=== PATIENT | female | born 1955 | race Caucasian/White ===

== ENCOUNTER 2018-10-22 11:12 | Emergency (ER) | payer OTHER ==
[2018-10-22 11:38] VITALS: BMI 24.1
[2018-10-22 12:06] LABS: BASO % 0.5 % (0-2.0); EOS % 2.5 % (0-4.5); HEMATOCRIT 42.9 % (32.4-45.2); HEMOGLOBIN 13.6 GM/dL (10.7-15.3); LYMPH % 21.8 % (8-40); MCH 25.9 pg (25.7-33.7); MCHC 31.8 g/dl (32.0-36.0); MEAN CELL VOLUME 81.5 fl (80-96); MEAN PLT VOLUME 8.5 fl (7.5-11.1); MONO % 5.5 % (3.8-10.2); NEUT % 69.7 % (42.8-82.8); PLATELET COUNT 251 K/MM3 (134-434); RBC 5.26 M/mm3 (3.60-5.2); RDW 14.3 % (11.6-15.6); WHITE BLOOD COUNT 11.7 K/mm3 (4.0-10.0)
[2018-10-22 12:12] VITALS: TEMP 98
[2018-10-22] MEDS ORDERED: TICAGRELOR 90 MG TABLET PO ONE ×2 (12:20→12:21)
--- NOTE | 2018-10-22 12:26 | PDOC ---
History of Present Illness - General Chief Complaint: Syncope/Near Syncope Stated Complaint: DIZZY / VOMITING / HEADACHE Time Seen by Provider: 10/22/18 11:42 History Source: Patient, Spouse Exam Limitations: No Limitations - History of Present Illness Initial Comments: 10/22/18 12:24 63F with a PMH of HTN and HLD presents with CP. The patient states that she's had 2 episodes of CP, one of which she is currently experiencing. The patient states that she had 2 hours of chest pain yesterday which was retrosternal and radiates to her neck. This morning, she developed the same chest pressure with radiation to her back, nausea, one bout of NBNB vomiting, and SOB. SHe also admits to a headache but denies fever, chills, numbness, tingling, or weakness. She denies ever having pain like this before. Past History - Past Medical History Allergies/Adverse Reactions: Allergies Allergy/AdvReac Type Severity Reaction Status Date / Time Penicillins Allergy Intermediate Rash Verified 10/22/18 11:20 aspirin Allergy Mild Rash Verified 10/22/18 11:20 COPD: No HTN: Yes - Suicide/Smoking/Psychosocial Hx Smoking History: Never smoked Hx Alcohol Use: No Drug/Substance Use Hx: No Review of Systems - Review of Systems Able to Perform ROS?: Yes Comments:: 10/22/18 12:27 GENERAL/CONSTITUTIONAL: No fever or chills. No weakness. HEAD, EYES, EARS, NOSE AND THROAT: No change in vision. No ear pain or discharge. No sore throat. CARDIOVASCULAR: + for chest pain. No palpitations, or lightheadedness. RESPIRATORY: + for SOB. No cough, wheezing, or hemoptysis. GASTROINTESTINAL: + for nausea and vomiting. No diarrhea, constipation, or abdominal pain. GENITOURINARY: No dysuria, frequency, hematuria, or change in urination. MUSCULOSKELETAL: No joint or muscle swelling or pain. No neck or back pain. SKIN: No rash or lesions. NEUROLOGIC: No headache, numbness, tingling, focal weakness, loss of consciousness, or change in strength/sensation. Is the patient limited Polish proficient: No *Physical Exam - Vital Signs Last Vital Signs Temp Pulse Resp BP Pulse Ox 98.0 F 72 25 H 134/101 H 100 10/22/18 11:44 10/22/18 11:44 10/22/18 11:44 10/22/18 11:44 10/22/18 12:13 - Physical Exam Comments: 10/22/18 12:28 GENERAL: Well developed, well nourished. Awake and alert. In moderate distress w / generalized tremors. HEENT: Normocephalic, atraumatic. Hearing grossly normal. Moist mucous membranes. PERRLA, EOMI. No conjunctival pallor. Sclera are non-icteric. NECK: Supple. Full ROM. No JVD. CARDIOVASCULAR: Regular rate and rhythm. No murmurs, rubs, or gallops. PULMONARY: No evidence of respiratory distress. Lungs clear to auscultation bilaterally. No wheezing, rales or rhonchi. ABDOMINAL: Soft. Non-tender. Non-distended. No rebound or guarding. MUSCULOSKELETAL: Normal range of motion at all joints. No bony deformities or tenderness. EXTREMITIES: No cyanosis. No clubbing. No edema. No calf tenderness or swelling. SKIN: Warm and dry. Normal capillary refill. No rashes. No jaundice. NEUROLOGICAL: Alert, awake, appropriate. Cranial nerves 2-12 grossly intact. Normal speech. PSYCHIATRIC: Cooperative. Good eye contact. Appropriate mood and affect. ED Treatment Course - LABORATORY CBC & Chemistry Diagram: 10/22/18 11:44 10/22/18 11:44 - ADDITIONAL ORDERS Additional order review: 10/22/18 11:44 RBC 5.26 H MCV 81.5 MCHC 31.8 L RDW 14.3 MPV 8.5 Neutrophils % 69.7 Lymphocytes % 21.8 Monocytes % 5.5 Eosinophils % 2.5 Basophils % 0.5 - RADIOLOGY Radiology Studies Ordered: Category Date Time Status CHEST X-RAY PORTABLE* [RAD] Stat Radiology 10/22/18 11:44 Completed Medical Decision Making - Medical Decision Making 10/22/18 12:29 63F with PMH of HTN and HLD who presents to the ER with complaints of CP radiating to her back, h/a, and unsteady gait. EKG showing dynamic changes. 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 Consent signed for transfer. Ticagrelor given. CXR pending. Troponin pending. Will obtain CTH as patient admitted to a fall earlier and being unsteady. 10/22/18 12:57 CTH shows ICH. Cardio fellow informed, STEMI cancelled. EKG changes likely 2/2 ICH. Pending troponin. Giving morphine and zofran for pt comfort. 10/22/18 13:[address] Arora at [facility] who accepts patient on behalf of Dr. Harper. Dr. Stone, ED attending, also accepts patient. Pt informed. Giving reglan as well for nausea as pt is vomiting. Last BP is 160/90. Troponin pending. *DC/Admit/Observation/Transfer Diagnosis at time of Disposition: Intracranial hemorrhage - Discharge Dispostion Disposition: TRANSFER ACUTE CARE/OTHER HOSP Condition at time of disposition: Critical Decision to Admit order: No - Referrals Referrals: Thu Callahan MD [Primary Care Provider] - - Patient Instructions - Post Discharge Activity - Transfer to Acute Care Facility Receiving Facility: [facility] Accepting Physician:: Dr. Stone
--- NOTE | 2018-10-22 12:31 | PDOC ---
Documentation entered by Natalia Livingston SCRIBE, acting as scribe for Jessy Hernandez MD. Jessy Hernandez MD: This documentation has been prepared by the Yara ferreira Nirvannie, SCRIBE, under my direction and personally reviewed by me in its entirety. I confirm that the documentation accurately reflects all work, treatment, procedures, and medical decision making performed by me. Attending Attestation - Resident Resident Name: AyeDemond - ED Attending Attestation I have performed the following: I have examined & evaluated the patient, The case was reviewed & discussed with the resident, I agree w/resident's findings & plan - HPI HPI: 10/22/18 12:32 Patient has previously visited [facility] under J: [id number]. 63YOF, with significant past medical history of HTN, HLD, asthma, and gastritis , who presents to the emergency department with, 2 episodes of pressure-like chest pain. Yesterday she notes it was retrosternal with radiation to the back/ neck lasting 2 hours. Today she notes her chest pain to worsen with associated nausea, vomiting, back pain, headache, dizziness, and shortness of breath, prompting her arrival to the ED. While in the ED, patient notes feeling unsteady on her legs this morning thus, falling, unknown if she hit her head. + lateral and posterior neck pain, since her fall this morning. Denies LOC. No AMS/seizure. Denies fever, chills, palpitation, weakness, D, abdominal pain, bladder and bowel problems, leg swelling, No sick contacts or travel. No new changes in medications. No suspicious food intake Allergies: Penicillins, Aspirin Past Medical History: HTN, HLD, asthma, and gastritis Social history: Lives with family. No tobacco, ETOH or drug use. Surgical history: None reported. Meds: as documented in EMR PMD: Dr. Callahan 10/22/18 12:34 10/22/18 12:46 - Physicial Exam PE: 10/22/18 12:30 Agree with the resident's HPI and PE as documented in the electronic medical record. in mild distress, very anxious and tremulous. PERRL, EOMI, nl conjunctiva, anicteric; neck supple. no respiratory distress. lungs clear, RRR, no murmur, abdomen soft nontender. BUSTAMANTE x4, no focal neuro deficits. No peripheral edema. normal color for ethnicity, WWP. 5/5 prox and distal strength. SILT in all extrem. - Critical Care Time Total Critical Care Time: 45 (RN IMMUNOLOGY bleed) Critical Care Statement: The care of this patient involved high complexity decision making to prevent further life threatening deterioration of the patient 's condition and/or to evaluate & treat vital organ system(s) failure or risk of failure. - Medical Decision Making 10/22/18 12:21 I, Jessy Hernandez MD, attest that this document has been prepared under my direction and personally reviewed by me in its entirety. I further attest, that it accurately reflects all work, treatment, procedures and medical decision -making performed by me. See HPI for details Vital signs reviewed, +hypertensive. bilateral pressures elevated, likely from pain. DDx chest pain: ACS, coronary vasospasm, NSTEMI, arrhythmia, unstable angina, PE , dissection, PUD, esophageal spasm, GERD, gastritis, costochondritis, pneumonia , pleurisy, pericarditis/myocarditis. dehydration, electrolyte/metabolic derangements. SAH/head bleed. Prior notes reviewed, including admissions, discharges and consultations. laboratory results and imaging reviewed, basic labs and lytes wnl CXR_no acute chest pathology Cardiac panel_pending. EKG normal sinus rhythm at 72 bpm, no interval abnormalities, narrow QRS, no ST elevations, but TWI in lateral leads I, AVL, II, V4-6; no ST depressions. repeat EKG 15 minutes later; EKG normal sinus rhythm at 68 bpm, no interval abnormalities, narrow QRS, Biphasic TWI in V2-V3 with Wellens appearance, Persistent TWI in lateral leads I , AVL, II, V4-6, acute changes compared to prior. ED course - asa allergy, did not give. Brilinta x1. - CT head to eval for SAH/head bleed as etiology for TWI/cerebral T waves - Code Red alert, to [facility] - subsequently cancelled due to alternative etiology. - analgesia with morphine. antiemetics for n/v. - with CT head findings of left sided parietal intraparenchymal bleed, likely etiology for cardiac ischemia/cerebral T waves on EKG, and +trop, now needs NSG emergently. likely from ruptured aneurysm, needs CTA out transferring facility - no heparin as +RN IMMUNOLOGY bleed. - called to NSG at [facility]. will transfer for neurosurg/cards eval simulataneously transfer to [facility] ED, for NSG eval of ICH/ dynamic EKG changes, +trop and concerning clinical history. +cerebral T waves and ischemia. repeat VS with BP 160/90. ok for BP management with SBP maintained <160 in setting of RN IMMUNOLOGY bleed. 10/22/18 16:02 10/22/18 16:03 Heart Score/ECG Review #1 ECG reviewed & interpreted by me at: 11:30 General ECG Interpretation: Sinus Rhythm, Normal Rate, Normal Intervals Compared to previous ECG there are: Changes noted 10/22/18 12:24 EKG normal sinus rhythm at 72 bpm, no interval abnormalities, narrow QRS, no ST elevations, but TWI in lateral leads I, AVL, II, V4-6; no ST depressions. #2 ECG reviewed & interpreted by me at: 11:45 General ECG Interpretation: Sinus Rhythm, Normal Rate, Normal Intervals Compared to previous ECG there are: Changes noted 10/22/18 12:25 EKG normal sinus rhythm at 68 bpm, no interval abnormalities, narrow QRS, Biphasic TWI in V2-V3 with Wellens appearance, Persistent TWI in lateral leads I , AVL, II, V4-6, acute changes compared to prior. Procedures - Bedside Ultrasound Bedside Ultrasound: Cardiac Remarks: 10/22/18 12:37 POCUS echo and thoracic exam performed and documented/saved, indication includes chest pain/dyspnea. views obtained (PSLA, PSS, A4, SX, bilateral lung deutsch). Findings include normal EF on visual estimation, no pericardial or pleural effusion, primarily A lines, no FWMA, Normal aortic root <4cm. RV<LV. Impression: no acute findings
[2018-10-22] MEDS ORDERED: morphine CARPU-JECT 4 MG/1 ML DISP.SYRIN IVPUSH ONE (12:34)
[2018-10-22 12:37] LABS: INR 1.07 (0.83-1.09); PROTHROMBIN TIME (PATIENT) 12.6 SEC (9.7-13.0)
[2018-10-22] MEDS ORDERED: morphine SULFATE 4 MG/ML VIAL ONE (12:37)
[2018-10-22] MEDS ORDERED: ONDANSETRON 4 MG/2 ML VIAL IVPUSH ONE (12:56)
[2018-10-22] MEDS ORDERED: ONDANSETRON 4 MG/2 ML VIAL ONE (13:00)
[2018-10-22] MEDS ORDERED: METOCLOPRAMIDE HCL INJECTION 10 MG/2 ML VIAL IVPB ONE (13:10)
[2018-10-22] MEDS ORDERED: METOCLOPRAMIDE HCL INJECTION 10 MG/2 ML VIAL ONE (13:15)
[2018-10-22 13:26] VITALS: BP 160/90; PULSE 72
[2018-10-22 13:31] LABS: CREATININE 0.5 mg/dL (0.55-1.3)
[2018-10-22 13:32] LABS: ALBUMIN 3.7 g/dl (3.4-5.0)
[2018-10-22 14:37] LABS: BILIRUBIN,TOTAL 0.4 mg/dL (0.2-1); CALCIUM 9.1 mg/dL (8.5-10.1); MAGNESIUM 2.3 mg/dL (1.8-2.4); POTASSIUM 3.7 mmol/L (3.5-5.1); TOT PROT 7.3 g/dl (6.4-8.2)
--- NOTE | 2018-10-23 12:25 | EKG ---
Test Reason : Blood Pressure : / mmHG Vent. Rate : 068 BPM Atrial Rate : 068 BPM P-R Int : 168 ms QRS Dur : 078 ms QT Int : 512 ms P-R-T Axes : 052 048 161 degrees QTc Int : 544 ms NORMAL SINUS RHYTHM PROLONGED QT ABNORMAL ECG NO PREVIOUS ECGS AVAILABLE Confirmed by ARVIN SANCHEZ MD ([id number]) on 10/23/2018 12:24:58 PM Referred By: Confirmed By:ARVIN SANCHEZ MD
== END 2018-10-22 13:20 | disposition short-term general hospital (02) ==
LOC: JER 11:12
PROC: 3E033GC Introduction of Other Therapeutic Substance into Peripheral Vein, Percutaneous Approach (ICD-10-PCS; principal; 2018-10-22)
PROC: 3E033NZ Introduction of Analgesics, Hypnotics, Sedatives into Peripheral Vein, Percutaneous Approach (ICD-10-PCS; 2018-10-22)
DX: I61.9 Nontraumatic intracerebral hemorrhage, unspecified (principal); I10 Essential (primary) hypertension; E78.5 Hyperlipidemia, unspecified
CPT/HCPCS: 36415; 70450-TC; 71045-TC-FY; 80053; 82550; 83735; 84484; 85025; 85610; 93005; 93010; 96374; 96375; 99285-25